=== PATIENT | female | born 1985 | race Hispanic/Latino ===

== ENCOUNTER 2020-01-12 13:47 | Inpatient (IN) | payer BC, OTHER ==
[~2020-01-12] VITALS: Ht 157.5 cm; Wt 93.9 kg
[~2020-01-12 13:47] MED LIST: DOCU-116 PO; IBUP-2077 PO
[2020-01-12 15:02] LABS: BASOPHILS % (AUTO) 0.1 % (0.0-5.0); EOSINOPHILS % (AUTO) 1.3 % (0.0-8.0); HEMATOCRIT 34.9 % (36-48); LYMPHOCYTES % (AUTO) 20.3 % (21.0-51.0); MEAN CORPUSCULAR HEMOGLOBIN 26.8 pg (27.0-33.0); MEAN CORPUSCULAR HGB CONC 33.2 g/dL (32.0-36.0); MEAN CORPUSCULAR VOLUME 80.6 fL (79-99); NEUTROPHILS % (AUTO) 73.9 % (40.0-77.0); PLATELET COUNT (AUTO) 200 K/uL (130-400); RED BLOOD CELL COUNT(AUTO) 4.33 MIL/uL (4.00-5.50); RED CELL DISTRIBUTION WIDTH 13.2 % (11.0-15.5); WHITE BLOOD COUNT (AUTO) 8.3 K/uL (4.8-10.8)
[2020-01-12] MEDS ORDERED: ACETAMINOPHEN EXTRA STRENGTH 500 MG TABLET ONE (15:04)
[2020-01-12 15:14] LABS: APPEARANCE,URINE Clear (CLEAR); BILIRUBIN,URINE Negative (NEGATIVE); COLOR,URINE Yellow (YELLOW); GLUCOSE, URINE (UA) Negative (NEGATIVE); HCG,QUAL RESULT NEGATIVE (NEGATIVE); KETONES,URINE Trace mg/dL (NEGATIVE); LEUKOCYTE ESTERASE ,URINE Negative (NEGATIVE); NITRATE,URINE Negative (NEGATIVE); OCCULT BLOOD,URINE Moderate (NEGATIVE); PH,URINE 5.5 (5.0-8.0); PROTEIN,URINE Trace mg/dL (NEGATIVE)
[2020-01-12 15:17] LABS: CREATININE 0.7 mg/dL (0.5-1.5); POTASSIUM 3.7 mmol/L (3.5-5.1)
[2020-01-12 15:21] LABS: ALBUMIN 3.8 g/dL (3.5-5.0); BILIRUBIN,TOTAL 0.6 mg/dL (0.2-1.0); TOTAL PROTEIN, SERUM 7.1 g/dL (6.0-8.3)
[2020-01-12 15:46] LABS: BACTERIA,URINE Few /HPF (None Seen); MUCUS,URINE Moderate LPF (None Seen); SQUAMOUS EPITHELIAL CELL,UR Few /HPF (0-2)
[2020-01-12] MEDS ORDERED: ONDANSETRON HCL 4 MG/2 ML VIAL ONE (17:46)
[2020-01-12] MEDS ORDERED: CEFTRIAXONE SODIUM 500 MG VIAL ONE (17:46)
[2020-01-12] MEDS ORDERED: AZITHROMYCIN 250 MG TABLET PO ONE (17:47)
[2020-01-12] MEDS ORDERED: FENTANYL CITRATE PF 50 MCG/1 ML 2ML VIAL ONE (20:06)
[2020-01-12] MEDS ORDERED: ACETAMINOPHEN EXTRA STRENGTH 500 MG TABLET PO PRN (21:30)
[2020-01-12 22:10] VITALS: BP 140/88
--- NOTE | 2020-01-12 22:10 | NUR ---
Report received from Mila Joens RN. Patient came in via wheelchair with saline locked patent on her Right antecubital. Plan of care discussed with her, call light given, inform not to eat or drink after midnight. Consent for surgery explained to patient and signed. Pre operative information/education given. Patient verbalizes understanding.
[2020-01-12] MEDS: LACTATED RINGERS 1000ML 1,000 ML IV SCH (22:47)
[2020-01-12] MEDS ORDERED: NAPR-1023 PO (23:32)
[2020-01-12 23:51] VITALS: BP 149/96
[2020-01-13] VITALS (23 sets, daily range): BP systolic 95–129; BP diastolic 53–84
[2020-01-13] MEDS: PROMETHAZINE HCL 25 MG/ML 1ML AMPULE IM PRN ×2 (00:01→05:40)
[2020-01-13] MEDS: MEPERIDINE-PF 50 MG/ML SYG IM PRN ×2 (00:02→05:42)
--- NOTE | 2020-01-13 04:55 | NUR ---
Activity; Patient up to take a shower. Pre-operative information given to patient , she verbalizes understanding.
--- NOTE | 2020-01-13 06:15 | NUR ---
Communication; Dr. Salazar informed that Surgery for this patient was scheduled at 8:30 to 9:00 AM instead of 7:00 Jeri the general warehouse worker said. Dr. Salazar said, " OK."
[2020-01-13] MEDS: LACTATED RINGERS 1000ML 1,000 ML IV SCH ×3 (06:44→23:42)
--- NOTE | 2020-01-13 08:05 | NUR ---
to holding area via her bed Addendum: 01/13/20 at 0853 by CHRISTA STAPLES RN Amended: Links added.
[2020-01-13] MEDS ORDERED: ONDANSETRON HCL 4 MG/2 ML VIAL ONE (08:09)
[2020-01-13] MEDS ORDERED: LIDOCAINE PF 2% 5ML ABBOJECT ONE (08:09)
[2020-01-13] MEDS ORDERED: PROPOFOL 10 MG/ML 20ML VIAL IV ONE (08:09)
[2020-01-13] MEDS ORDERED: ROCURONIUM 10MG/1ML SYR 10 MG/ML ML ONE (08:10)
[2020-01-13] MEDS ORDERED: MIDAZOLAM HCL 1 MG/ML 2ML VIAL ONE (08:10)
[2020-01-13] MEDS ORDERED: FENTANYL CITRATE PF 50 MCG/1 ML 5ML AMP IV ONE (08:18)
[2020-01-13] MEDS ORDERED: ROPIVACAINE 0.5% 5MG/ML 30ML IJ ONE (08:30)
[2020-01-13] MEDS ORDERED: FENTANYL CITRATE PF 50 MCG/1 ML 2ML VIAL ONE (08:44)
[2020-01-13] MEDS ORDERED: LIDOCAINE HCL 4% LTA SOL 4 ML VIAL ONE (08:56)
[2020-01-13] MEDS ORDERED: NEOSTIGMINE 5MG/5ML SYR IV ONE (09:22)
[2020-01-13] MEDS ORDERED: GLYCOPYRROLATE 1 MG/5 ML SYRINGE ONE (09:22)
[2020-01-13] MEDS ORDERED: SODIUM CHLORIDE 0.9% 1000ML 1,000 ML IV SCH (10:29)
[2020-01-13] MEDS ORDERED: MEPERIDINE-PF 75 MG/ML SYG IM PRN (10:30)
[2020-01-13] MEDS ORDERED: BISACODYL 10 MG SUPP.RECT RC PRN ×2 (10:30)
[2020-01-13] MEDS ORDERED: DOCUSATE SODIUM 100 MG CAP PO PRN (10:30)
[2020-01-13] MEDS ORDERED: PROMETHAZINE HCL 25 MG/ML 1ML AMPULE IM PRN ×2 (10:30)
[2020-01-13] MEDS ORDERED: SIMETHICONE 80 MG TAB.CHEW PO PRN ×2 (10:30)
[2020-01-13] MEDS ORDERED: HYDROCODONE/ACETAMINOPHEN 5/325 MG TAB PO PRN (10:30)
[2020-01-13] MEDS ORDERED: ONDANSETRON HCL 4 MG/2 ML VIAL IVP PRN (10:30)
[2020-01-13] MEDS ORDERED: ACETAMINOPHEN-CODEINE 300/30MG TAB PO PRN ×2 (10:30)
[2020-01-13] MEDS ORDERED: IBUPROFEN 800 MG TAB PO SCH (10:30)
[2020-01-13] MEDS ORDERED: DIPH,PERTUSS(ACELL),TET VAC/PF 0.5 ML VIAL IM SCH (10:30)
--- NOTE | 2020-01-13 16:55 | NUR ---
hughes catheter removed, tip intact. pericare done. applied abdominal binder, assisted to bedside chair. pt tolerated well. Addendum: 01/13/20 at 1709 by CHRISTA STAPLES RN Amended: Links added.
[2020-01-13] MEDS: CALDOLOR 800MG+NS 250ML 250 ML IV SCH (17:36)
[2020-01-13] MEDS: DOCUSATE SODIUM 100 MG CAP PO PRN (21:28)
[2020-01-14 00:19] VITALS: BP 107/58
[2020-01-14] MEDS: CALDOLOR 800MG+NS 250ML 250 ML IV SCH (01:37)
[2020-01-14 03:45] VITALS: BP 101/68
[2020-01-14 06:51] LABS: HEMATOCRIT 30.7 % (36-48); MEAN CORPUSCULAR HEMOGLOBIN 26.5 pg (27.0-33.0); MEAN CORPUSCULAR HGB CONC 31.9 g/dL (32.0-36.0); RED BLOOD CELL COUNT(AUTO) 3.7 MIL/uL (4.00-5.50); RED CELL DISTRIBUTION WIDTH 13.5 % (11.0-15.5); WHITE BLOOD COUNT (AUTO) 8.4 K/uL (4.8-10.8)
[2020-01-14 07:33] VITALS: BP 106/73
--- NOTE | 2020-01-14 07:45 | NUR ---
DR. ARCE CALLED AND ORDER GIVEN FOR DISCHARGE. PATIENT IS STABLE AND DENIES PAIN.
[2020-01-14] MEDS ORDERED: LIDOCAINE 5% TOPICAL PATCH TP SCH (08:00)
[2020-01-14] MEDS: DOCUSATE SODIUM 100 MG CAP PO PRN (09:08)
--- NOTE | 2020-01-14 10:15 | NUR ---
PATIENT WAS GIVEN DISCHARGE INSTRUCTIONS AND PIV WAS REMOVED. PATIENT IS STABLE AND IV SITE WNL. NO EDEMA OR SWELLING NOTED.
[2020-01-14] MEDS ORDERED: IBUPROFEN 800 MG TAB PO SCH (10:30)
--- NOTE | 2020-01-14 10:40 | NUR ---
PATIENT WAS TAKEN VIA W/C TO [facility]ILY [facility]LE AND WAS DISCHARGED TO HER IN STABLE CONDITION.
== END 2020-01-14 10:40 | disposition home or self-care (01) | DRG 742 ==
LOC: EDH 13:47 → EDHIP 19:10 → WSH 22:10
PROVIDERS: ADMIT Obstetrics & Gynecology; ATTEND Obstetrics & Gynecology
PROC: 3E0234Z Introduction of Serum, Toxoid and Vaccine into Muscle, Percutaneous Approach (ICD-10-PCS; 2020-01-13)
PROC: 0UB00ZZ Excision of Right Ovary, Open Approach (ICD-10-PCS; principal; 2020-01-13 08:17)
PROC: 0UT60ZZ Resection of Left Fallopian Tube, Open Approach (ICD-10-PCS; 2020-01-13 08:17)
PROC: 0UT10ZZ Resection of Left Ovary, Open Approach (ICD-10-PCS; 2020-01-13 08:17)
PROC: 3E0T3BZ Introduction of Anesthetic Agent into Peripheral Nerves and Plexi, Percutaneous Approach (ICD-10-PCS; 2020-01-13 08:17)
DX: N80.1 Endometriosis of ovary (principal); N83.512 Torsion of left ovary and ovarian pedicle; N83.201 Unspecified ovarian cyst, right side; E66.01 Morbid (severe) obesity due to excess calories; Z68.37 Body mass index [BMI] 37.0-37.9, adult; Z23 Encounter for immunization
CPT/HCPCS: 36415; 74176; 76856; 80053; 81001; 81025; 82105; 83690; 84702; 85025; 85027; 86304; 86850; 86900; 86901; 93005; G0378; J0696; J1741; J2001; J2175; J2250; J2405; J2550; J2704; J2710; J2795; J3010; J3490; J7030; J7120